=== PATIENT | male | born 1945 | race Hispanic/Latino ===

== ENCOUNTER 2018-08-01 15:05 | Emergency (ER) | payer MEDICARE, MEDICAID ==
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
[2018-08-01 16:35] LABS: BASO # 0.1 K/uL (0.0-0.2); BASO % 1.2 % (0.0-2.0); EOS # 0.1 K/uL (0.0-0.7); EOS % 1.4 % (0.0-4.0); HEMOGLOBIN 14.2 g/dL (12.0-18.0); LYMPH # 1.2 K/uL (1.0-4.3); LYMPH % 18.1 % (20.0-40.0); MEAN CELL VOLUME 89.9 fl (80.0-94.0); MEAN CORPUSCULAR HEMOGLOBIN 29.7 pg (27.0-31.0); MEAN PLATELET VOLUME 9.3 fl (7.2-11.7); MONO # 0.5 K/uL (0.0-0.8); MONO % 6.8 % (0.0-10.0); NEUT # 4.9 K/uL (1.8-7.0); NEUT % 72.5 % (50.0-75.0); RBC 4.77 Mil/uL (4.40-5.90); RED CELL DISTRIBUTION WIDTH 14.5 % (11.5-14.5); WHITE BLOOD COUNT 6.8 K/uL (4.8-10.8)
[2018-08-01 16:48] LABS: ALB/GLOB RATIO 1.2 (1.0-2.1); ALBUMIN 4.4 g/dL (3.5-5.0); ALT/SGPT 23 U/L (21-72); AST/SGOT 27 U/L (17-59); BLOOD UREA NITROGEN 27 mg/dl (9-20); CALCIUM 9.6 mg/dL (8.4-10.2); GFR NON-AFRICAN AMERICAN > 60
[2018-08-01 16:49] LABS: ACETAMINOPHEN < 10.0 ug/ml (10.0-30.0); SALICYLATE < 1.0 mg/dl
[2018-08-01] MEDS ORDERED: Sterile Water 10 ML IV ONE (19:21)
[2018-08-02 03:32] LABS: SQUAMOUS EPITHIAL < 1 /hpf (0-5); URINE BILIRUBIN NEGATIVE (NEGATIVE); URINE BLOOD NEGATIVE (NEGATIVE); URINE CLARITY SLIGHTY-CLOUDY (Clear); URINE COLOR YELLOW (YELLOW); URINE GLUCOSE (UA) NEG (NEGATIVE); URINE LEUKOCYTE ESTERASE NEG Leu/uL (Negative); URINE PROTEIN NEGATIVE (NEGATIVE); URINE UROBILINOGEN 0.2-1.0 mg/dL (0.2-1.0)
[2018-08-02 03:36] LABS: BARBITURATES, UR NEGATIVE (NEGATIVE); BENZODIAZEPINES, UR POSITIVE (NEGATIVE); OPIATES, UR NEGATIVE (NEGATIVE); PHENCYCLIDINE, UR NEGATIVE (NEGATIVE)
--- NOTE | 2018-08-02 04:23 | ED PDOC ---
- Laboratory Results Result Diagrams: 08/01/18 16:30 08/01/18 16:30 Lab Results: Total Bilirubin 0.4 mg/dl (0.2-1.3) 08/01/18 16:30 AST 27 U/L (17-59) 08/01/18 16:30 ALT 23 U/L (21-72) 08/01/18 16:30 Alkaline Phosphatase 67 U/L (38-126) 08/01/18 16:30 Total Protein 8.2 G/DL (6.3-8.2) 08/01/18 16:30 Albumin 4.4 g/dL (3.5-5.0) 08/01/18 16:30 Globulin 3.7 gm/dL (2.2-3.9) 08/01/18 16:30 Albumin/Globulin Ratio 1.2 (1.0-2.1) 08/01/18 16:30 Urine Color Yellow (YELLOW) 08/02/18 03:13 Urine Clarity Slighty-cloudy (Clear) 08/02/18 03:13 Urine pH 5.0 (5.0-8.0) 08/02/18 03:13 Ur Specific [place] 1.027 (1.003-1.030) 08/02/18 03:13 Urine Protein Negative mg/dL (NEGATIVE) 08/02/18 03:13 Urine Glucose (UA) Neg mg/dL (NEGATIVE) 08/02/18 03:13 Urine Ketones Negative mg/dL (NEGATIVE) 08/02/18 03:13 Urine Blood Negative (NEGATIVE) 08/02/18 03:13 Urine Nitrate Negative (NEGATIVE) 08/02/18 03:13 Urine Bilirubin Negative (NEGATIVE) 08/02/18 03:13 Urine Urobilinogen 0.2-1.0 mg/dL (0.2-1.0) 08/02/18 03:13 Ur Leukocyte Esterase Neg [place]/uL (Negative) 08/02/18 03:13 Urine RBC (Auto) 3 /hpf (0-3) 08/02/18 03:13 Urine Microscopic WBC 8 /hpf (0-5) H 08/02/18 03:13 Ur Squamous Epith Cells < 1 /hpf (0-5) 08/02/18 03:13 - ECG O2 Sat by Pulse Oximetry: 99 Medical Decision Making Medical Decision MakinPM Patient endorsed to me by Dr. Loyola pending crisis eval and [facility] eval Patient was agitated, going into hallway and screaming, patient was given IM Ativan to calm him down, did not require physical restraints 9PM Patient walking around ER calmly with EDT, eating food 12AM Patient resting comfortably 3AM Patient submitted urine sample 4AM Patient states he's becoming restless once again, requesting injection to "go to sleep". 2mg of ativan ordered 7AM Will endorse to Dr. Loyola pending [facility] eval Patient medically cleared Disposition - Clinical Impression Clinical Impression: Depression - POA Present On Arrival: None - Disposition Disposition: Transfer of Care Disposition Time: 07:00 Condition: STABLE Forms: [facility] (Amharic) Patient Signed Over To: Maryjane Loyola Handoff Comments: pending eval by [facility]
--- NOTE | 2018-08-02 07:29 | ED PDOC ---
- Laboratory Results Result Diagrams: 08/01/18 16:30 08/01/18 16:30 Lab Results: Total Bilirubin 0.4 mg/dl (0.2-1.3) 08/01/18 16:30 AST 27 U/L (17-59) 08/01/18 16:30 ALT 23 U/L (21-72) 08/01/18 16:30 Alkaline Phosphatase 67 U/L (38-126) 08/01/18 16:30 Total Protein 8.2 G/DL (6.3-8.2) 08/01/18 16:30 Albumin 4.4 g/dL (3.5-5.0) 08/01/18 16:30 Globulin 3.7 gm/dL (2.2-3.9) 08/01/18 16:30 Albumin/Globulin Ratio 1.2 (1.0-2.1) 08/01/18 16:30 Urine Color Yellow (YELLOW) 08/02/18 03:13 Urine Clarity Slighty-cloudy (Clear) 08/02/18 03:13 Urine pH 5.0 (5.0-8.0) 08/02/18 03:13 Ur Specific [place] 1.027 (1.003-1.030) 08/02/18 03:13 Urine Protein Negative mg/dL (NEGATIVE) 08/02/18 03:13 Urine Glucose (UA) Neg mg/dL (NEGATIVE) 08/02/18 03:13 Urine Ketones Negative mg/dL (NEGATIVE) 08/02/18 03:13 Urine Blood Negative (NEGATIVE) 08/02/18 03:13 Urine Nitrate Negative (NEGATIVE) 08/02/18 03:13 Urine Bilirubin Negative (NEGATIVE) 08/02/18 03:13 Urine Urobilinogen 0.2-1.0 mg/dL (0.2-1.0) 08/02/18 03:13 Ur Leukocyte Esterase Neg [place]/uL (Negative) 08/02/18 03:13 Urine RBC (Auto) 3 /hpf (0-3) 08/02/18 03:13 Urine Microscopic WBC 8 /hpf (0-5) H 08/02/18 03:13 Ur Squamous Epith Cells < 1 /hpf (0-5) 08/02/18 03:13 - ECG O2 Sat by Pulse Oximetry: 99 Pulse Ox Interpretation: Normal Medical Decision Making Medical Decision Makinyo male, signed out to me by Dr. Baird pending crisis evaluation Patient resting in room comfortably. 15:[address] Pt signed out to Dr. Hall pending [facility] bed availability. Scribe Attestation: Documented by Priyanka Hills, acting as a scribe for Maryjane Loyola MD. Provider Scribe Attestation: All medical record entries made by the Scribe were at my direction and personally dictated by me. I have reviewed the chart and agree that the record accurately reflects my personal performance of the history, physical exam, medical decision making, and the department course for this patient. I have also personally directed, reviewed, and agree with the discharge instructions and disposition. Disposition - Clinical Impression Clinical Impression: Depression - POA Present On Arrival: None - Disposition Disposition: Transfer of Care Disposition Time: 15:00 Condition: STABLE Forms: [facility] (Danish)
--- NOTE | 2018-08-02 08:30 | RAD ---
Date of service: 08/01/2018 HISTORY: Medical clearance COMPARISON: No prior. FINDINGS: LUNGS: Mild bibasilar interstitial changes. PLEURA: No significant pleural effusion identified, no pneumothorax apparent. CARDIOVASCULAR: No aortic atherosclerotic calcification present. Normal cardiac size. No pulmonary vascular congestion. OSSEOUS STRUCTURES: No significant abnormalities. VISUALIZED UPPER ABDOMEN: Normal. OTHER FINDINGS: None. IMPRESSION: Mild bibasilar interstitial changes.
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
--- NOTE | 2018-08-02 15:28 | ED PDOC ---
- Laboratory Results Result Diagrams: 08/01/18 16:30 08/01/18 16:30 Lab Results: Total Bilirubin 0.4 mg/dl (0.2-1.3) 08/01/18 16:30 AST 27 U/L (17-59) 08/01/18 16:30 ALT 23 U/L (21-72) 08/01/18 16:30 Alkaline Phosphatase 67 U/L (38-126) 08/01/18 16:30 Total Protein 8.2 G/DL (6.3-8.2) 08/01/18 16:30 Albumin 4.4 g/dL (3.5-5.0) 08/01/18 16:30 Globulin 3.7 gm/dL (2.2-3.9) 08/01/18 16:30 Albumin/Globulin Ratio 1.2 (1.0-2.1) 08/01/18 16:30 Urine Color Yellow (YELLOW) 08/02/18 03:13 Urine Clarity Slighty-cloudy (Clear) 08/02/18 03:13 Urine pH 5.0 (5.0-8.0) 08/02/18 03:13 Ur Specific [place] 1.027 (1.003-1.030) 08/02/18 03:13 Urine Protein Negative mg/dL (NEGATIVE) 08/02/18 03:13 Urine Glucose (UA) Neg mg/dL (NEGATIVE) 08/02/18 03:13 Urine Ketones Negative mg/dL (NEGATIVE) 08/02/18 03:13 Urine Blood Negative (NEGATIVE) 08/02/18 03:13 Urine Nitrate Negative (NEGATIVE) 08/02/18 03:13 Urine Bilirubin Negative (NEGATIVE) 08/02/18 03:13 Urine Urobilinogen 0.2-1.0 mg/dL (0.2-1.0) 08/02/18 03:13 Ur Leukocyte Esterase Neg [place]/uL (Negative) 08/02/18 03:13 Urine RBC (Auto) 3 /hpf (0-3) 08/02/18 03:13 Urine Microscopic WBC 8 /hpf (0-5) H 08/02/18 03:13 Ur Squamous Epith Cells < 1 /hpf (0-5) 08/02/18 03:13 - ECG O2 Sat by Pulse Oximetry: 99 Pulse Ox Interpretation: Normal - Progress ED Course And Treament: 1500: Took over care from Dr. Loyola. Pending [facility] [place]. Stable. Ambulated. AAOx3. CTA. 1530: Bed for psych available. Will transfer. Disposition - Clinical Impression Clinical Impression: Depression - POA Present On Arrival: None - Disposition Disposition: Other Institution Disposition Time: 15:27 Condition: STABLE
[2018-08-02 15:43] VITALS: BP 142/82; PULSE 87; RESP 18; TEMP 98.1
--- NOTE | 2018-08-02 21:14 | CARD ---
APPROVED REPORT Date of service: 08/01/2018 EKG Measurement Heart [id number] <Conclusion> Normal sinus rhythm Right bundle branch block Abnormal ECG
[2018-08-02 23:50] VITALS: O2SAT 99
== END 2018-08-02 18:20 | disposition home or self-care (01) ==
LOC: H.ER 15:05
DX: F32.9 Major depressive disorder, single episode, unspecified (principal); F43.10 Post-traumatic stress disorder, unspecified; I10 Essential (primary) hypertension; Z00.8 Encounter for other general examination; Z91.19 Patient's noncompliance with other medical treatment and regimen; Z86.59 Personal history of other mental and behavioral disorders
CPT/HCPCS: 71045; 80053; 81003; 84443; 85025; 93005; 96372; 99285; G0480; J2060